=== PATIENT | male | born 1935 | race African-American/Black ===

== ENCOUNTER 2019-02-13 09:06 | Outpatient (CLI) | payer MEDICARE ==
[2019-02-13 09:41] LABS: Blood Urea Nitrogen 16 mg/dL (9-20)
--- NOTE | 2019-02-14 13:21 | Cat Scan Report ---
CTA of the abdomen and pelvis: Thoracic aortic aneurysm requiring further evaluation. Following IV contrast administration transverse images are obtained from the low chest and ischium with coronal and sagittal reformatted images. The visualized lung bases are unremarkable. Imaging below the diaphragm demonstrates unremarkable liver, spleen, pancreas, and adrenal glands. The kidneys also appear unremarkable. Interposed however between the anterior margin of the right kidney and the inferior margin of the liver is a 6 cm cystic mass. There is a small notch-like defect also noted in the anterior margin of the mid kidney however the source of this lesion is unclear. The unopacified large bowel and mesentery appears generally unremarkable. There is mild fluid filled dilatation of some of the distal small bowel loops. The size and contour of the abdominal aorta is generally unremarkable. There are some scattered mural plaques however throughout its course. There is a normal bifurcation into unremarkable iliofemoral arteries. Impressions: 1. Atheromatous changes of the abdominal aorta. No evidence of aneurysm. 2. Right upper quadrant cyst of questionable origin. MR scan may be of additional diagnostic benefit.
== END 2019-02-13 09:07 | disposition home or self-care (01) ==
LOC: CT 09:06
PROVIDERS: ATTEND Internal Medicine Cardiovascular Disease
DX: I70.0 Atherosclerosis of aorta (principal)
CPT/HCPCS: 36415; 75635; 82565; 84520; Q9967